=== PATIENT | female | born 1985 | race Caucasian/White ===

== ENCOUNTER → 2019-06-09 09:43 | Outpatient (CLI) | payer MEDICAID, SELFPAY ==
--- NOTE | 2019-06-09 09:56 | ART_ITS ---
Reason For Study: PVD with claudication Procedure A bilateral lower extremity continuous wave Doppler with analog waveform analysis,segmental pressures,and ankle brachial indexes without exercise. Left Segmental Pressures Left brachial= 125mmHg. Left posterior tibial artery = 141mmHg. Left dorsalis pedis artery = 132mmHg. Left digit = 114 mmHg. The left dorsalis pedis waveforms are triphasic. The left posterior tibial artery waveforms are triphasic. Right Segmental Pressures Right brachial= 127mmHg. Right thigh = 149mmHg. Right calf = 103mmHg. Right posterior tibial artery = 110mmHg. Right dorsalis pedis artery = 86mmHg. Right digit = 72 mmHg. The right dorsalis pedis waveforms are biphasic. The right posterior tibial artery waveforms are triphasic. Indices The right ankle brachial index by the posterior tibial artery is .87. The right ankle brachial index by the dorsalis pedis is .68. The right digital-brachial index is .57. The left ankle brachial index by the dorsalis pedis is 1.04. The left ankle brachial index by the posterior tibial artery is 1.11. The left digital-brachial index is .9. Interpretation Summary Triphasic and biphasic Doppler waveforms are noted at ankle level on the right. Triphasic Doppler waveforms are noted at ankle level on the left. Pulse-volume recordings appear satisfactory at all levels bilaterally. The resting right ankle-brachial index is mildly diminished. The resting left ankle-brachial index is normal. The right digital-brachial index is mildly diminished. The left digital-brachial index is normal. There is evidence of mild arterial occlusive disease in the right lower extremity, with apparent disease at the right femoral-popliteal level. There is no evidence of significant arterial occlusive disease in the left lower extremity. Ordering Physician: Farzaneh Stovall Referring Physician: Farzaneh Stovall Performed By: CAITLYN MYERS T
== END ==
PROVIDERS: PCP Family Medicine; Referring Provider Podiatrist; Visit Provider Podiatrist
DX: M54.16 Radiculopathy, lumbar region (principal); I70.291 Other atherosclerosis of native arteries of extremities, right leg; I73.89 Other specified peripheral vascular diseases
CPT/HCPCS: 93923

== ENCOUNTER → 2019-07-11 14:07 | Outpatient (CLI) | payer MEDICAID, SELFPAY ==
[2019-07-06 12:35] LABS: Hematocrit 41.2 % (37-47); Hemoglobin 13.5 g/dL (12.0-15.0); Mean Corp Hgb Conc 32.8 g/dL (32-36); Mean Corpuscular Hgb 30.7 pg (27.0-32.0); Mean Corpuscular Volume 93.6 fL (81-99); Mean Platelet Vol. 9.2 fl (6.2-12.0); Platelet Count 460 K/mm3 (150-450); RBC Distribution Width CV 13.3 % (11.6-14.6); RBC Distribution Width SD 45.7 fl (35.1-43.9)
[2019-07-06 13:07] LABS: Anion Gap 7 (5-15); BUN 10 mg/dL (7-18); BUN/Creat Ratio 13.2 RATIO (10-20); Calcium,Total 9.5 mg/dL (8.5-10.1); Chloride 108 mmol/L (98-107); Creatinine, Serum 0.76 mg/dL (0.55-1.02); EST Glomerular Filtration Rate 94 mL/min (>60); Est Glom Filt Rate - Afr Amer 114 mL/min (>60); Glucose 85 mg/dL (74-106); Potassium 4.1 mmol/L (3.5-5.1); Sodium Level 140 mmol/L (136-145)
--- NOTE | 2019-07-11 14:10 | ECHOD_ITS ---
Reason For Study: Atherosclerosis Procedure This was a 2D Doppler, Color Flow transthoracic echocardiogram. Exam performed in department. Left Ventricle Normal LV size. Left ventricular systolic function is normal. The estimated ejection fraction is 60 %. No regional wall motion abnormalities noted. Right Ventricle Normal RV size. Normal systolic function. Atria Normal left atrium. Normal right atrium. Bubble contrast study negative for right to left interatrial shunt. Mitral Valve Normal mitral valve. Tricuspid Valve Normal tricuspid valve. Mild tricuspid valve insufficiency. Aortic Valve Normal aortic valve. Trisinus/trileaflet aortic valve. Pulmonic Valve Normal pulmonic valve. Great Vessels Normal aortic root. The pulmonary artery is normal size. Normal inferior vena cava. Pericardium/Pleural No pericardial effusion. Medication 22 gauge I.V. with prn adaptor inserted into left arm. Performed a rapid injection of agitated mix of 9 cc saline and 1cc air to assess for atrial septal defect. MMode/2D Measurements & Calculations LVIDd: 4.5 cm IVSd: 0.89 cm Ao root diam: 2.6 cm LVIDs: 2.8 cm LVPWd: 0.84 cm RVDd: 3.3 cm FS: 37.6 % LAV(MOD-bp): 35.2 ml EDV(MOD-sp4): 79.6 ml EDV(MOD-sp2): 79.0 ml LAV(MOD-bp) Indexed: 18.2 ml/m2 ESV(MOD-sp4): 28.5 ml EF(MOD-sp2): 59.2 % LAV(MOD-sp2): 28.2 ml EF(MOD-sp4): 64.2 % LAV(MOD-sp4): 35.5 ml SV(MOD-sp4): 51.1 ml SV(MOD-sp2): 46.7 ml LA A4 area: 15.3 cm2 LA dimension(2D): 2.7 cm RA A4 area: 10.4 cm2 Doppler Measurements & Calculations MV E max viktor: 90.7 cm/sec Lat Peak E' Viktor: 15.1 cm/sec Med Peak E' Viktor: 13.6 cm/sec MV A max viktor: 65.4 cm/sec E/E' lat: 6.0 E/E' med: 6.7 MV E/A: 1.4 Ao V2 max: 143.3 cm/sec LV V1 max: 123.3 cm/sec PA V2 max: 109.6 cm/sec Ao max P.2 mmHg LV V1 max P.1 mmHg TR max viktor: 202.4 cm/sec TR max P.4 mmHg Interpretation Summary Normal LV size. Left ventricular systolic function is normal. The estimated ejection fraction is 60 %. Bubble contrast study negative for right to left interatrial shunt. Ordering Physician: Kolby Baugh Referring Physician: Kolby Baugh Performed By: Glendy Bucio RDCS
--- NOTE | 2019-07-11 15:17 | CT_ITS ---
STUDY: CTA OF THE ABDOMINAL AORTA AND BILATERAL LOWER EXTREMITIES REASON FOR EXAM: Female, 34 years old. NEUROPAHTY, H/O BLOOD CLOTS, ATHEROSCLEROSIS, CLOT IN ARTERY IN LEG IN NOV. ON THINNERS. RADIATION DOSAGE (If Supplied By Facility): CTDIvol = ( 9.98 ) mGy, DLP = ( 1423.73 ) mGycm TECHNIQUE: Axial CT angiography multi-detector data acquisition was obtained from the lung bases to the bilateral feet following intravenous administration of IV 100mL Isovue-370. Axial images and MIP images were reconstructed from the axial data set. Post-processing of the angiographic images was performed, with multiplanar reformation and 3D reconstruction. Individualized dose optimization techniques were used for this CT. TECHNICAL QUALITY: Good COMPARISON: None. Descriptors of Narrowing: None (0%) Mild (< 50%) Moderate (50-70%) Severe (70-90%) Subtotal/Total Occlusion (90-100%) Non-Evaluable (technically non-diagnostic FINDINGS: Abdominal aorta: Minimal atherosclerotic disease involving the distal abdominal aorta with no demonstrated narrowing. Celiac and superior mesenteric arteries: No demonstrated narrowing. Inferior mesenteric artery: No demonstrated narrowing. Right renal artery(arteries): No demonstrated narrowing. Left renal artery(arteries): No demonstrated narrowing. Right common iliac artery: No demonstrated narrowing. Right external iliac artery: No demonstrated narrowing. Right internal iliac artery: No demonstrated narrowing. Left common iliac artery: No demonstrated narrowing. Left external iliac artery: No demonstrated narrowing. Left internal iliac artery: No demonstrated narrowing. RIGHT LOWER EXTREMITY Right common femoral artery: No demonstrated narrowing. Surgical clips demonstrated at the level of the right groin. Right profundus femoris: No demonstrated narrowing. Right superficial femoral: Mild intimal thickening with a diffuse narrowing involving the proximal superficial femoral artery of approximately over a length of at least 10 cm. Due to diffuse smooth narrowing somewhat out of proportion to the level of atherosclerosis, but component of vascular spasm not entirely excluded. Right popliteal artery: No demonstrated narrowing. Right tibioperoneal trunk: No demonstrated narrowing. Right anterior tibial artery: No demonstrated narrowing. Right posterior tibial artery: No demonstrated narrowing. Right peroneal artery: No demonstrated narrowing. LEFT LOWER EXTREMITY Left common femoral artery: No demonstrated narrowing. Left profundus femoris: No demonstrated narrowing. Left superficial femoral: No demonstrated narrowing. Left popliteal artery: No demonstrated narrowing. Left tibioperoneal trunk: No demonstrated narrowing. Left anterior tibial artery: No demonstrated narrowing. Left posterior tibial artery: No demonstrated narrowing. Left peroneal artery: No demonstrated narrowing. CT/CTA Abd w/Runoff W/WO Contrast IMPRESSION: Diffuse smooth narrowing of the right proximal superficial femoral artery with component to muscular spasm not excluded. Minimal calcified atherosclerotic disease of the distal abdominal aorta, otherwise abdominal aorta and bilateral lower extremity run-off without a hemodynamically significant stenosis. Electronically Signed: Oralia Davidson MD at 0:29 EDT , Service support ,
== END ==
PROVIDERS: PCP Family Medicine; Referring Provider Surgery Vascular Surgery; Visit Provider Surgery Vascular Surgery
DX: G62.9 Polyneuropathy, unspecified (principal); I70.211 Atherosclerosis of native arteries of extremities with intermittent claudication, right leg; Z72.0 Tobacco use; Z86.718 Personal history of other venous thrombosis and embolism
CPT/HCPCS: 36415; 75635; 80048; 85027; 93306; Q9967; A4216

== ENCOUNTER → 2019-07-13 09:05 | Outpatient (CLI) | payer MEDICAID, SELFPAY ==
--- NOTE | 2019-07-13 13:13 | NEURO ---
NCS and/or EMG Patient Report Ordering Doctor: Farzaneh Stovall DATE OF SERVICE: 07/13/19 Sonia Garcia is a 34-year-old female presents for electrodiagnostic testing of the right lower limb. She has pain, weakness and numbness in the right foot. She has a history of right foot surgery for hammertoes. Electrodiagnostic findings: Right common peroneal nerve demonstrates normal distal latency, amplitude and conduction velocity. Normal right tibial motor response. Normal tibial and peroneal F wave. Normal H reflex bilaterally. Sensory responses are within normal limits. On needle EMG, all muscles tested showed no evidence of denervation with normal motor unit action potentials. Electrodiagnostic impression: This is a normal electrodiagnostic study in the right lower limb. There is no electrodiagnostic evidence for peripheral neuropathy or lumbosacral radiculopathy. If there are any questions, please do not hesitate to contact me
== END ==
PROVIDERS: PCP Family Medicine; Referring Provider Podiatrist; Visit Provider Podiatrist
DX: M54.16 Radiculopathy, lumbar region (principal); I73.9 Peripheral vascular disease, unspecified
CPT/HCPCS: 95886; 95910